=== PATIENT | female | born 1995 | race Caucasian/White ===

== ENCOUNTER 2016-10-22 20:53 | Emergency (ER) | payer SELFPAY ==
[2016-10-22 21:18] VITALS: TEMP 98.1
[2016-10-22] MEDS ORDERED: NS 1,000 ML IV ONE ×2 (22:08)
--- NOTE | 2016-10-22 22:11 | EDPHY ---
H & P Stated Complaint: "Too much Xanax and Laxatives" Unintentional Source: Patient Exam Limitations: No limitations - Personal History LMP (Females 10-55): Over 28 Days Ago Current Tetanus Diphtheria and Acellular Pertussis (TDAP): Yes - Medical/Surgical History Hx Asthma: No Hx Chronic Respiratory Disease: No Hx Diabetes: No Hx Cardiac Disease: No Hx Renal Disease: No Hx Cirrhosis: No Hx Alcoholism: No Hx HIV/AIDS: No Hx Splenectomy or Spleen Trauma: No Other PMH: Anxiety, Eating DO "Binge eating and using laxatives" - Social History Smoking Status: Never smoked Time Seen by Provider: 10/22/16 21:56 HPI/ROS: CHIEF COMPLAINT: Laxative overdose, Xanax use HISTORY OF PRESENT ILLNESS: The patient has a history of an eating disorder with binge laxative abuse. The patient reportedly took 10 laxatives this evening and had profuse diarrhea. The patient was feeling somewhat anxious about that and then took several Xanax which reportedly in her medicine cabinet prescribed to her mother and sister. The patient was noted to be somnolent and stumbling around by her friends who contacted paramedics and brought the patient to the ED. The patient is absolutely adamant about the fact that she was not suicidal. The patient does report she has symptoms of a difficult to manage intermittent eating disorder. The patient denies any drug or alcohol use. The patient is prescribed Adderall. REVIEW OF SYSTEMS: A comprehensive 10 point review of systems is otherwise negative aside from elements mentioned in the history of present illness. (Moy Lujan) - Physical Exam Exam: General Appearance: Thin female, alert, somnolent, arousable in no acute distress Eyes: Pupils equal and round no pallor or injection ENT, Mouth: Mucous membranes moist Respiratory: There are no retractions, lungs are clear to auscultation Cardiovascular: Regular rate and rhythm Gastrointestinal: Abdomen is soft and nontender, no masses, bowel sounds normal Neurological: A&O, normal motor function, normal sensory exam, normal cranial nerves Skin: Warm and dry, no rashes Musculoskeletal: Neck is supple nontender Extremities: symmetrical, full range of motion (Moy Lujan) Constitutional: Initial Vital Signs Temperature (C) 36.7 C 10/22/16 20:53 Heart Rate 62 10/22/16 20:53 Respiratory Rate 14 10/22/16 20:53 Blood Pressure 103/64 10/22/16 20:53 O2 Sat (%) 98 10/22/16 20:53 O2 Delivery Mode Room Air Allergies/Adverse Reactions: No Known Allergies Allergy (Unverified 03/23/14 23:12) Home Medications: Medication Instructions Recorded Amoxicillin/Clavulanate Pot 875 mg PO BID #14 tab 03/23/14 [Augmentin 875 MG TAB (*)] Medical Decision Making - Diagnostics EKG Interpretation: EKG: Complete interpretation has been separately recorded in the [facility] archive. Summary impression: Sinus rhythm, no arrhythmias noted (Moy Lujan) ED Course/Re-evaluation: The patient had an IV established. She received 2 L of normal saline. The patient is quite somnolent. She has no evidence of a metabolic abnormality. She does not meet criteria for mental health hold. The patient will be kept in the emergency department pending metabolism from the Xanax she consumed. I do feel the patient will be able to be discharged from the emergency department after an additional period of observation. (Moy Lujan) 2245 care assumed by me from Dr. Lujan pending the metabolization of the Xanax that she took earlier. Patient is sleeping. No metabolic abnormalities at this time. 2340 patient ambulating unassisted in the emergency department she is alert and oriented and without complaint. She is discharged with follow-up per Dr. Lujan plan. (Claude Siegel) Differential Diagnosis: Differential diagnosis considered includes metabolic abnormality, dehydration, suicidal ideation, homicidal ideation (Moy Lujan) - Data Points Laboratory Results: Laboratory Results 10/22/16 21:00 10/22/16 21:00 10/22/16 10/22/16 10/22/16 21:00 21:00 21:00 WBC 10.28 10^3/uL H 10^3/uL (3.80-9.50) RBC 4.40 10^6/uL 10^6/uL (4.18-5.33) Hgb 13.5 g/dL g/dL (12.6-16.3) Hct 40.1 % % (38.0-47.0) MCV 91.1 fL fL (81.5-99.8) MCH 30.7 pg pg (27.9-34.1) MCHC 33.7 g/dL g/dL (32.4-36.7) RDW 12.9 % % (11.5-15.2) Plt Count 276 10^3/uL 10^3/uL (150-400) MPV 10.9 fL fL (8.7-11.7) Neut % (Auto) 58.4 % % (39.3-74.2) Lymph % (Auto) 30.0 % % (15.0-45.0) [place] % (Auto) 9.2 % % (4.5-13.0) Eos % (Auto) 1.5 % % (0.6-7.6) Baso % (Auto) 0.5 % % (0.3-1.7) Nucleat RBC Rel Count 0.0 % % (0.0-0.2) Absolute Neuts (auto) 6.01 10^3/uL 10^3/uL (1.70-6.50) Absolute Lymphs (auto) 3.08 10^3/uL H 10^3/uL (1.00-3.00) Absolute Monos (auto) 0.95 10^3/uL H 10^3/uL (0.30-0.80) Absolute Eos (auto) 0.15 10^3/uL 10^3/uL (0.03-0.40) Absolute Basos (auto) 0.05 10^3/uL 10^3/uL (0.02-0.10) Absolute Nucleated RBC 0.00 10^3/uL 10^3/uL (0-0.01) Immature Gran % 0.4 % % (0.0-1.1) Immature Gran # 0.04 10^3/uL 10^3/uL (0.00-0.10) Sodium 140 mEq/L mEq/L (134-144) Potassium 3.9 mEq/L mEq/L (3.5-5.2) Chloride 103 mEq/L mEq/L (97-110) Carbon Dioxide 22 mEq/l mEq/l (22-31) Anion Gap 15 mEq/L mEq/L (8-16) BUN 9 mg/dL mg/dL (7-23) Creatinine 0.7 mg/dL mg/dL (0.6-1.0) Estimated GFR > 60 Glucose 98 mg/dL mg/dL (70-100) Calcium 9.8 mg/dL mg/dL (8.5-10.4) Beta HCG, Qual NEGATIVE Ethyl Alcohol < 10 mg/dL mg/dL (0-10) Medications Given: Discontinued Medications Sodium Chloride (Ns) 1,000 mls @ 0 mls/hr IV ONCE ONE; Wide Open PRN Reason: Protocol Stop: 10/22/16 22:09 Last Admin: 10/22/16 22:38 Dose: 1,000 mls Sodium Chloride (Ns) 1,000 mls @ 0 mls/hr IV ONCE ONE; Wide Open PRN Reason: Protocol Stop: 10/22/16 22:09 Last Admin: 10/22/16 22:38 Dose: 1,000 mls Departure - Departure Disposition: Home, Routine, Self-Care Clinical Impression: Laxative abuse, Poisoning by benzodiazepine Condition: Good Instructions: Anxiety (ED) Additional Instructions: 1. Please follow-up with the mental health resources provided in the ED today. 2. [facility] does operate a 24/11 psychiatric crisis unit located at [address] [place] [address]. The telephone number for the 24 hour crisis center is [phone]. 3. Please return to the ED if you are feeling suicidal, having thoughts of harming yourself/others or should you feel unsafe or have worsening symptoms. Referrals: [facility],. [Clinic] - As per Instructions
[2016-10-22 22:19] LABS: % IMMATURE GRANULYOCYTES 0.4 % (0.0-1.1); ABSOLUTE IMMATURE GRANULOCYTES 0.04 10^3/uL (0.00-0.10); ADD DIFF? NO; ADD MORPH? NO; ADD SCAN? NO; ANION GAP 15 mEq/L (8-16); ATYPICAL LYMPHOCYTE FLAG 40 (0-99); CALCIUM 9.8 mg/dL (8.5-10.4); CARBON DIOXIDE 22 mEq/l (22-31); CHLORIDE 103 mEq/L (97-110); CREATININE 0.7 mg/dL (0.6-1.0); ETHANOL SERUM < 10 mg/dL (0-10); FRAGMENT RBC FLAG 0 (0-99); GLOMERULAR FILTRATION RATE > 60; GLUCOSE 98 mg/dL (70-100); HEMATOCRIT 40.1 % (38.0-47.0); HEMOGLOBIN 13.5 g/dL (12.6-16.3); LEFT SHIFT FLG 10 (0-99); LIPEMIA HEMOLYSIS FLAG 80 (0-99); MEAN CELL HEMOGLOBIN 30.7 pg (27.9-34.1); MEAN CELL HEMOGLOBIN CONCENTR. 33.7 g/dL (32.4-36.7); MEAN CELL VOLUME 91.1 fL (81.5-99.8); MEAN PLATELET VOLUME 10.9 fL (8.7-11.7); PLATELET CLUMPS FLAG 0 (0-99); PLATELET COUNT 276 10^3/uL (150-400); POTASSIUM 3.9 mEq/L (3.5-5.2); RED CELL DISTRIBUTION WIDTH 12.9 % (11.5-15.2); SODIUM 140 mEq/L (134-144)
--- NOTE | 2016-10-22 22:25 | CPEKG ---
Heart Rate: 66 RR Interval: 909 P-R Interval: 148 QRSD Interval: 84 QT Interval: 424 QTC Interval: 445 P Pierz: 67 QRS Pierz: 94 T Wave Pierz: 44 EKG Severity - BORDERLINE ECG - EKG Impression: SINUS RHYTHM EKG Impression: PROBABLE LEFT ATRIAL ABNORMALITY EKG Impression: BORDERLINE RIGHT AXIS DEVIATION Electronically Signed By: Moy Lujan 22-Oct-2016 22:31:50
[2016-10-22 22:39] VITALS: RESP 16
[2016-10-23] MEDS ORDERED: IBUPROFEN 200 MG TAB PO ONE
[2016-10-23 00:28] VITALS: BP 102/68; PULSE 65; O2SAT 95
== END 2016-10-23 00:28 | disposition home or self-care (01) ==
LOC: EDUNIT#
DX: T42.4X1A Poisoning by benzodiazepines, accidental (unintentional), initial encounter (principal); F55.2 Abuse of laxatives
CPT/HCPCS: G0480